=== PATIENT | male | born 1935 | race Caucasian/White ===

== ENCOUNTER 2019-06-28 18:38 | Emergency (ER) | payer MEDICARE ==
[~2019-06-28] VITALS: Ht 180.4 cm; Wt 90.5 kg
--- NOTE | 2019-06-28 19:09 | ED GI ---
General Chief Complaint: Abdominal/GI Problems Stated Complaint: UPPER ABD BURNING/DISCOMFORT Nursing Triage Note: Pt amb to room #5 with c/o epigastric discomfort, bloating, et nausea. Pt reports onset of symptoms to be 06/27/19. Pt reports inability to sleep d/t discomfort. ABD round, soft, et distended. Pt deneis fever, chills, vomiting, or diarrhea. A&ox4. Daughter at side. Sepsis Screen: No Definite Risk Source of Information: Patient Exam Limitations: No Limitations History of Present Illness Date Seen by Provider: Jun 28, 2019 Time Seen by Provider: 19:06 Initial Comments To ER with reports of "gas", states that his abdomen feels tight to bend forward, belching a lot, nausea and bloating. Bowel movements have been normal. No fever no chills no history of this. He denies chest pain or shortness of breath. Timing/Duration: 1-2 Days Severity/Quality: Moderate Radiation: No Radiation Activities at Onset: None Associated Symptoms: Nausea/Vomiting Allergies and Home Medications Allergies Coded Allergies: No Known Drug Allergies (Unverified , 11/03/15) Home Medications No Active Prescriptions or Reported Meds Patient Home Medication List Home Medication List Reviewed: Yes Review of Systems Review of Systems Constitutional: see HPI; No chills, No fever EENTM: No Symptoms Reported Respiratory: No Symptoms Reported Cardiovascular: No Symptoms Reported Gastrointestinal: See HPI, Abdominal Pain Genitourinary: No Symptoms Reported Musculoskeletal: no symptoms reported Skin: no symptoms reported Psychiatric/Neurological: No Symptoms Reported Endocrine: No Symptoms Reported Past Eqjxmen-Xswfsa-Rfgwrs Hx Patient Social History Recent Foreign Travel: No Contact w/Someone Who Travel: No Recent Infectious Disease Expo: No Physical Exam Vital Signs Vital Signs - First Documented 06/28/19 18:47 Temp 36.7 Pulse 96 Resp 18 B/P (MAP) 181/96 (124) Pulse Ox 98 O2 Delivery Room Air Capillary Refill : Less Than 3 Seconds Height/Weight/BMI Height: 5'10.50" Weight: 211lbs. 0.0oz. 95.191947wg; 27.00 BMI Method: General Appearance: WD/WN, no apparent distress, other (Alert and oriented abdomen distended bowel sounds normal may be a bit hyperactive.) Neck: non-tender, full range of motion Respiratory: no respiratory distress, no accessory muscle use Gastrointestinal: normal bowel sounds, non tender, soft Extremities: normal range of motion, non-tender Neurologic/Psychiatric: alert, normal mood/affect, oriented x 3 Skin: normal color, warm/dry Progress/Results/Core Measures Results/Orders Lab Results Laboratory Tests Test 06/28/19 18:56 06/28/19 19:40 Range/Units White Blood Count 8.5 4.3-11.0 10^3/uL Red Blood Count 4.89 4.35-5.85 10^6/uL Hemoglobin 15.0 13.3-17.7 G/DL Hematocrit 45 40-54 % Mean Corpuscular Volume 91 80-99 FL Mean Corpuscular Hemoglobin 31 25-34 PG Mean Corpuscular Hemoglobin Concent 34 32-36 G/DL Red Cell Distribution Width 12.9 10.0-14.5 % Platelet Count 224 130-400 10^3/uL Mean Platelet Volume 9.2 7.4-10.4 FL Neutrophils (%) (Auto) 65 42-75 % Lymphocytes (%) (Auto) 22 12-44 % Monocytes (%) (Auto) 11 0-12 % Eosinophils (%) (Auto) 3 0-10 % Basophils (%) (Auto) 0 0-10 % Neutrophils # (Auto) 5.5 1.8-7.8 X 10^3 Lymphocytes # (Auto) 1.9 1.0-4.0 X 10^3 Monocytes # (Auto) 0.9 0.0-1.0 X 10^3 Eosinophils # (Auto) 0.2 0.0-0.3 10^3/uL Basophils # (Auto) 0.0 0.0-0.1 10^3/uL Sodium Level 140 135-145 MMOL/L Potassium Level 3.8 3.6-5.0 MMOL/L Chloride Level 104 98-107 MMOL/L Carbon Dioxide Level 25 21-32 MMOL/L Anion Gap 11 5-14 MMOL/L Blood Urea Nitrogen 15 7-18 MG/DL Creatinine 0.99 0.60-1.30 MG/DL Estimat Glomerular Filtration Rate > 60 BUN/Creatinine Ratio 15 Glucose Level 113 H 70-105 MG/DL Calcium Level 9.9 8.5-10.1 MG/DL Corrected Calcium 9.6 8.5-10.1 MG/DL Total Bilirubin 0.4 0.1-1.0 MG/DL Aspartate Amino Transf (AST/SGOT) 19 5-34 U/L Alanine Aminotransferase (ALT/SGPT) 17 0-55 U/L Alkaline Phosphatase 78 40-136 U/L Total Protein 7.1 6.4-8.2 GM/DL Albumin 4.4 3.2-4.5 GM/DL Lipase 12 8-78 U/L Urine Color YELLOW Urine Clarity CLEAR Urine pH 7.0 5-9 Urine Specific [place] 1.010 L 1.016-1.022 Urine Protein NEGATIVE NEGATIVE Urine Glucose (UA) NEGATIVE NEGATIVE Urine Ketones NEGATIVE NEGATIVE Urine Nitrite NEGATIVE NEGATIVE Urine Bilirubin NEGATIVE NEGATIVE Urine Urobilinogen 0.2 < = 1.0 MG/DL Urine Leukocyte Esterase NEGATIVE NEGATIVE Urine RBC (Auto) 1+ H NEGATIVE Urine RBC NONE /HPF Urine WBC NONE /HPF Urine Crystals NONE /LPF Urine Bacteria NEGATIVE /HPF Urine Casts NONE /LPF Urine Mucus NEGATIVE /LPF Urine Culture Indicated NO My Orders Orders - RICHARDSON THOMAS APRN Lipase (06/28/19 19:02) Ua Culture If Indicated (06/28/19 19:02) Cbc With Automated Diff (06/28/19 19:02) Comprehensive Metabolic Panel (06/28/19 19:02) Ct Abdomen/Pelvis W (06/28/19 19:02) Iohexol Injection (Omnipaque 350 Mg/Ml 1 (06/28/19 19:30) Received Contrast (Hold Metformin- Contr (06/28/19 19:30) Ns (Ivpb) (Sodium Chloride 0.9% Ivpb Bag (06/28/19 19:30) Medications Given in ED Current Medications Medications Dose Ordered Sig/Milli Route Start Time Stop Time Status Last Admin Dose Admin Iohexol 100 ml ONCE ONCE IV 06/28/19 19:30 06/28/19 19:31 DC 06/28/19 19:28 100 ML Sodium Chloride 100 ml ONCE ONCE IV 06/28/19 19:30 06/28/19 19:31 DC 06/28/19 19:28 80 ML Vital Signs/I&O 06/28/19 18:47 Temp 36.7 Pulse 96 Resp 18 B/P (MAP) 181/96 (124) Pulse Ox 98 O2 Delivery Room Air Blood Pressure Mean: 124 Departure Communication (Admissions) NAME: ERIKA DECKER REC#: [id number] PT STATUS: REG ER : 1935 PHYSICIAN: RICHARDSON THOMAS APRN ADMIT DATE: 06/28/19/ER Draft Date of Exam:06/28/19 CT ABDOMEN/PELVIS W PROCEDURE: CT abdomen and pelvis with contrast. TECHNIQUE: Multiple contiguous axial images were obtained through the abdomen and pelvis after administration of intravenous contrast. Auto Exposure Controls were utilized during the CT exam to meet ALARA standards for radiation dose reduction. INDICATION: Abdominal pain. Bloating. Comparison is made to the prior CT study from 02/19/2013. FINDINGS: Lung bases appear clear without focal infiltrate or evidence of an effusion. The liver demonstrates multiple low density lesions throughout the liver compatible with cysts. These are not significantly changed from the prior examination. The gallbladder is nondistended. There are no radiodense gallstones. The main portal vein is patent. The spleen is normal in size. Pancreas is atrophic without focal abnormality. There is no adrenal mass. The kidneys are nonobstructed. There is a small left renal cyst. Stomach is nondistended. There are no findings of bowel dilation to suggest bowel obstruction. Note is made of advanced sigmoid diverticulosis but no findings of diverticulitis. There is moderate stool throughout the colon. There are no findings to suggest appendicitis. There is no free air, free fluid or abscess. The prostate is enlarged. Urinary bladder unremarkable. There are no pathologically enlarged abdominal or pelvic lymph nodes. The aorta is normal in caliber. There are atherosclerotic calcifications within the aorta. There is multilevel degenerative disc disease and facet arthropathy but no evidence of an acute or suspicious osseous abnormality. 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 IMPRESSION: 1. No CT evidence of an acute inflammatory or obstructive process within the abdomen or pelvis 2. No findings of bowel obstruction. Uncomplicated diverticulosis noted 3. Unchanged hepatic cysts 4. No free air, free fluid, abscess, adenopathy or focal inflammation within the omentum or mesentery. Dictated on workstation # [id number] Dict: 06/28/191946 Trans: 06/28/192036 [facility] [id number] Interpreted by: ISSAC SOTO MD Electronically signed by: Impression Primary Impression: Abdominal bloating Additional Impression: Gas pain Disposition: HOME, SELF-CARE Condition: Stable Departure-Patient Inst. Decision time for Depature: 20:12 Referrals: PAN GOYAL MD (PCP/Family) Primary Care Physician Patient Instructions: No Instuctions Given Add. Discharge Instructions: 1. Use the gas medication as needed. Return to ER for any concerns. Follow-up with Dr. Goyal on Sunday. All discharge instructions reviewed with patient and/or family. Voiced understanding. Scripts Simethicone (Simethicone) 125 Mg Tab.chew 125 MG PO TID, #10 TAB Prov: RICHARDSON THOMAS APRN 06/28/19 Copy Copies To 1: PAN GOYAL MD, PETER J APRN Jun 28, 2019 19:09
[2019-06-28 19:18] LABS: BASOPHILS % (AUTO) 0 % (0-10); EOSINOPHILS # (AUTO) 0.2 10^3/uL (0.0-0.3); EOSINOPHILS % (AUTO) 3 % (0-10); HEMATOCRIT 45 % (40-54); LYMPHOCYTES # (AUTO) 1.9 X 10^3 (1.0-4.0); LYMPHOCYTES % (AUTO) 22 % (12-44); MEAN CORPUSCULAR HEMOGLOBIN 31 PG (25-34); MEAN CORPUSCULAR HGB CONC 34 G/DL (32-36); MEAN CORPUSCULAR VOLUME 91 FL (80-99); MEAN PLATELET VOLUME 9.2 FL (7.4-10.4); MONOCYTES # (AUTO) 0.9 X 10^3 (0.0-1.0); MONOCYTES % (AUTO) 11 % (0-12); NEUTROPHILS # (AUTO) 5.5 X 10^3 (1.8-7.8); NEUTROPHILS % (AUTO) 65 % (42-75); PLATELET COUNT 224 10^3/uL (130-400); RED CELL DISTRIBUTION WIDTH 12.9 % (10.0-14.5); WHITE BLOOD COUNT 8.5 10^3/uL (4.3-11.0)
[2019-06-28 19:24] LABS: ALANINE AMINOTRANSFERASE 17 U/L (0-55); ALBUMIN 4.4 GM/DL (3.2-4.5); ALKALINE PHOSPHATASE 78 U/L (40-136); BILIRUBIN,TOTAL 0.4 MG/DL (0.1-1.0); BUN/CREATININE RATIO 15; CALCIUM 9.9 MG/DL (8.5-10.1); CARBON DIOXIDE 25 MMOL/L (21-32); CHLORIDE 104 MMOL/L (98-107); CREATININE SERUM 0.99 MG/DL (0.60-1.30); GFR ESTIMATED > 60; GLUCOSE 113 MG/DL (70-105); LIPASE 12 U/L (8-78); POTASSIUM 3.8 MMOL/L (3.6-5.0); SODIUM 140 MMOL/L (135-145); TOTAL PROTEIN 7.1 GM/DL (6.4-8.2)
[2019-06-28] MEDS ORDERED: NS 100 ML (IVPB) BAG IV ONE (19:30)
[2019-06-28] MEDS ORDERED: HOLD METFORMIN - RECEIVED CONTRAST 20 ML VIAL IV SCH (19:30)
[2019-06-28] MEDS ORDERED: IOHEXOL 350 MG/ML 100 ML (OMNIPAQUE 350) VIAL IV ONE (19:30)
[2019-06-28 19:49] LABS: BILIRUBIN,URINE NEGATIVE (NEGATIVE); CLARITY,URINE CLEAR; COLOR,URINE YELLOW; GLUCOSE, URINE (UA) NEGATIVE (NEGATIVE); KETONES,URINE NEGATIVE (NEGATIVE); LEUKOCYTE ESTERASE ,URINE NEGATIVE (NEGATIVE); NITRITE,URINE NEGATIVE (NEGATIVE); PROTEIN,URINE NEGATIVE (NEGATIVE)
[2019-06-28 19:56] LABS: BACTERIA,URINE NEGATIVE /HPF
--- NOTE | 2019-06-28 20:05 | NUR ---
Pt brother took personal belongings (keys) et left ED facility.
--- NOTE | 2019-06-28 20:38 | Diagnostic Imaging Report ---
PROCEDURE: CT abdomen and pelvis with contrast. TECHNIQUE: Multiple contiguous axial images were obtained through the abdomen and pelvis after administration of intravenous contrast. Auto Exposure Controls were utilized during the CT exam to meet ALARA standards for radiation dose reduction. INDICATION: Abdominal pain. Bloating. Comparison is made to the prior CT study from 02/19/2013. FINDINGS: Lung bases appear clear without focal infiltrate or evidence of an effusion. The liver demonstrates multiple low density lesions throughout the liver compatible with cysts. These are not significantly changed from the prior examination. The gallbladder is nondistended. There are no radiodense gallstones. The main portal vein is patent. The spleen is normal in size. Pancreas is atrophic without focal abnormality. There is no adrenal mass. The kidneys are nonobstructed. There is a small left renal cyst. Stomach is nondistended. There are no findings of bowel dilation to suggest bowel obstruction. Note is made of advanced sigmoid diverticulosis but no findings of diverticulitis. There is moderate stool throughout the colon. There are no findings to suggest appendicitis. There is no free air, free fluid or abscess. The prostate is enlarged. Urinary bladder unremarkable. There are no pathologically enlarged abdominal or pelvic lymph nodes. The aorta is normal in caliber. There are atherosclerotic calcifications within the aorta. There is multilevel degenerative disc disease and facet arthropathy but no evidence of an acute or suspicious osseous abnormality. 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 IMPRESSION: 1. No CT evidence of an acute inflammatory or obstructive process within the abdomen or pelvis 2. No findings of bowel obstruction. Uncomplicated diverticulosis noted 3. Unchanged hepatic cysts 4. No free air, free fluid, abscess, adenopathy or focal inflammation within the omentum or mesentery. Dictated by: Dictated on workstation # [id number]
[2019-06-28] MEDS ORDERED: SIME125T50 PO (20:45)
[2019-06-28] MEDS ORDERED: ALPRAZolam 0.25 MG (XANAX) TAB PO ONE (21:00)
[2019-06-28 21:02] VITALS: BP 142/83
== END 2019-06-28 21:03 | disposition home or self-care (01) ==
LOC: EDUNIT# 18:38 → ER 18:40
DX: R14.0 Abdominal distension (gaseous) (principal); R14.1 Gas pain
CPT/HCPCS: 36415; 74177; 80053; 81000; 83690; 85025; 93005

== ENCOUNTER → 2021-12-26 | Outpatient (CLI) | payer MEDICARE ==
[~2021-12-26] MED LIST: SIME125T50 PO
--- NOTE | 2021-12-26 13:58 | Diagnostic Imaging Report ---
PROCEDURE: MRI lumbar spine. TECHNIQUE: Multiplanar, multisequence MRI of the lumbar spine was performed without contrast. INDICATION: Chronic back pain. FINDINGS: There is straightening of the normal lumbar lordosis. The vertebral body heights are well maintained. No spondylolysis or spondylolisthesis. No fractures are identified. Conus medullaris seen at L1 is normal in appearance. At T12-L1, there is no spinal or neural foraminal encroachment. At L1-L2, there is some annular bulging facet disease and thickening of ligamentum flavum. There is moderate spinal stenosis with moderate bilateral neural foraminal encroachment. At L2-L3, there is annular bulging facet disease and thickening of ligamentum flavum. There is mild spinal stenosis with encroachment of lateral recess bilaterally and moderate bilateral neural foraminal encroachment. At L3-L4, there is annular bulging facet disease and thickening of ligamentum flavum. There is severe central spinal stenosis with encroachment on the lateral recess bilaterally. Moderate bilateral neural foraminal encroachment. At L4-L5, there is annular bulging facet disease and thickening of ligamentum flavum. There is moderately severe spinal stenosis with encroachment on the lateral recess bilaterally left greater than right. There is moderate bilateral foraminal encroachment. At L5-S1, there is annular bulging and facet disease. There is moderate spinal stenosis with encroachment of lateral recess bilaterally and mild to moderate bilateral neural foraminal encroachment. The aorta is nonaneurysmal. There are small bilateral renal cysts. 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 Small bilateral renal cysts. Dictated by: Dictated on workstation # [id number]
== END ==
LOC: RAD 10:28
PROVIDERS: ATTEND Internal Medicine
DX: M47.26 Other spondylosis with radiculopathy, lumbar region (principal); N28.1 Cyst of kidney, acquired
CPT/HCPCS: 72148

== ENCOUNTER 2022-04-03 12:53 | Emergency (ER) | payer MEDICARE ==
[~2022-04-03] VITALS: Ht 177 cm; Wt 83.9 kg
--- NOTE | 2022-04-03 13:25 | ED Back Pain ---
General Chief Complaint: Back Problems Stated Complaint: BACK PAIN | MUSCLE SPASMS Source of Information: Patient, Family Exam Limitations: No Limitations History of Present Illness Date Seen by Provider: Apr 03, 2022 Time Seen by Provider: 13:10 Initial Comments 86-year-old male presents to the emergency department today for low back pain. He has midline low back pain since August. For the last couple of months he has been having "spasms" in his bilateral lumbar lateral regions. About a week ago he had a spinal procedure with Dr. Joiner at [facility] in [place]. His daughter states they "went in and clean some things up." They are unclear exactly what he had done. During the whole course of this since August he has had some bilateral lower extremity edema. He was previously on a water pill, spironolactone/hydrochlorothiazide. He quit taking this because due to his pain he has been unable to get up and go to the restroom. His leg swelling has gotten worse per his report. He is having normal urination, normal bowel movements. He has been taking pain medication, hydrocodone as well as gabapentin. He feels like his midline tenderness that he has been having was relieved with his surgery however he continues to have intermittent bilateral lumbar spasm type pains that last for few seconds and are severe. These are not much worse if he moves with any twisting movement or flexion at the waist. They do sometimes happen spontaneously. The daughter states that he will have "knots in the area." She states she is able to feel these when they happen. Allergies and Home Medications Allergies Coded Allergies: No Known Drug Allergies (Unverified , 11/03/15) Patient Home Medication List Home Medication List Reviewed: Yes Simethicone (Simethicone) 125 Mg Tab.chew, 125 MG PO TID Prescribed by: RICHARDSON THOMAS on 06/28/192044 Review of Systems Constitutional: no symptoms reported EENTM: no symptoms reported Respiratory: no symptoms reported Cardiovascular: no symptoms reported Gastrointestinal: no symptoms reported Genitourinary: no symptoms reported Musculoskeletal: back pain Skin: no symptoms reported Psychiatric/Neurological: No Symptoms Reported Past Qqmgtmx-Fmtjwm-Xfewdp Hx Patient Social History Tobacco Use?: No Substance use?: No Alcohol Use?: No Pt feels they are or have been: No Past Medical History Surgery/Hospitalization HX: PMH;CHOLESTEROL. SUGERY;BACK SURGERY TO "CLEAN OUT SPINE" Surgeries: Yes (CYST ON FOREHEAD) Respiratory: No Cardiac: No Neurological: No Gastrointestinal: No Musculoskeletal: No Endocrine: No Integumentary: No Family Medical History Reviewed Nursing Family Hx No Pertinent Family Hx Physical Exam Vital Signs Vital Signs - First Documented 04/03/22 12:58 Temp 36.6 Pulse 128 Resp 20 B/P (MAP) 164/84 (110) Pulse Ox 98 O2 Delivery Room Air Capillary Refill : Height, Weight, BMI Height: 5'10.50" Weight: 211lbs. 0.0oz. 95.498671eb; 27.00 BMI Method: General Appearance: No Apparent Distress, WD/WN HEENT: Normal ENT Inspection, Pharynx Normal Neck: Full Range of Motion, Normal Inspection, Non Tender, Supple Cardiovascular: Regular Rate, Rhythm, Normal Peripheral Pulses Respiratory: Chest Non Tender, Normal Breath Sounds, No Accessory Muscle Use, No Respiratory Distress Back: Normal Inspection, Other (Midline lumbar incision approximately 2 cm, healing well without evidence for infection. No midline tenderness to palpation. 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 Skin: Normal Color, Warm/Dry Progress/Results/Core Measures Results/Orders Lab Results Laboratory Tests Test 04/03/22 13:23 Range/Units White Blood Count 10.0 4.3-11.0 10^3/uL Red Blood Count 4.55 4.30-5.52 10^6/uL Hemoglobin 12.6 L 13.3-17.7 g/dL Hematocrit 40 40-54 % Mean Corpuscular Volume 87 80-99 fL Mean Corpuscular Hemoglobin 28 25-34 pg Mean Corpuscular Hemoglobin Concent 32 32-36 g/dL Red Cell Distribution Width 14.2 10.0-14.5 % Platelet Count 329 130-400 10^3/uL Mean Platelet Volume 8.3 L 9.0-12.2 fL Immature Granulocyte % (Auto) 1 % Neutrophils (%) (Auto) 71 42-75 % Lymphocytes (%) (Auto) 19 12-44 % Monocytes (%) (Auto) 8 0-12 % Eosinophils (%) (Auto) 1 0-10 % Basophils (%) (Auto) 0 0-10 % Neutrophils # (Auto) 7.1 1.8-7.8 10^3/uL Lymphocytes # (Auto) 1.9 1.0-4.0 10^3/uL Monocytes # (Auto) 0.8 0.0-1.0 10^3/uL Eosinophils # (Auto) 0.1 0.0-0.3 10^3/uL Basophils # (Auto) 0.0 0.0-0.1 10^3/uL Immature Granulocyte # (Auto) 0.1 0.0-0.1 10^3/uL Sodium Level 136 135-145 MMOL/L Potassium Level 3.8 3.6-5.0 MMOL/L Chloride Level 98 98-107 MMOL/L Carbon Dioxide Level 27 21-32 MMOL/L Anion Gap 11 5-14 MMOL/L Blood Urea Nitrogen 20 H 7-18 MG/DL Creatinine 1.00 0.60-1.30 MG/DL Estimat Glomerular Filtration Rate 74 BUN/Creatinine Ratio 20 Glucose Level 139 H 70-105 MG/DL Calcium Level 10.2 H 8.5-10.1 MG/DL Corrected Calcium 9.8 8.5-10.1 MG/DL Total Bilirubin 0.6 0.1-1.0 MG/DL Aspartate Amino Transf (AST/SGOT) 18 5-34 U/L Alanine Aminotransferase (ALT/SGPT) 20 0-55 U/L Alkaline Phosphatase 101 40-136 U/L Total Protein 8.2 6.4-8.2 GM/DL Albumin 4.5 3.2-4.5 GM/DL My Orders Orders - TOM HARRISON DO Comprehensive Metabolic Panel (04/03/22 13:20) Cbc With Automated Diff (04/03/22 13:20) Fentanyl Inj (Sublimaze Injection) (04/03/22 13:30) Medications Given in ED Current Medications Medications Dose Ordered Sig/Milli Route Start Time Stop Time Status Last Admin Dose Admin Fentanyl Citrate 50 mcg ONCE ONCE IVP 04/03/22 13:30 04/03/22 13:42 DC 04/03/22 13:29 50 MCG Vital Signs/I&O 04/03/22 12:58 Temp 36.6 Pulse 128 Resp 20 B/P (MAP) 164/84 (110) Pulse Ox 98 O2 Delivery Room Air Departure Communication (Admissions) Patient is hemodynamically stable with no red flag symptoms. He has very intermittent pain, only with movement and has clear muscle spasms in the area when affected. He does have significant amount of pain with this. He was told after his surgery that he had been given the "maximum amount of pain medication" and was ultimately discharged with similar pains. Sounds like this pain has been going on for several months at this time with multiple different attempts at control without much relief. We will go ahead and try muscle relaxers at his daughter's request. He has no red flag symptoms such as saddle anesthesia, loss of bowel or bladder control. No focal neurologic deficits. Simply discharged home in stable condition with supportive care. Impression Primary Impression: Back strain Qualified Codes: S39.012A - Strain of muscle, fascia and tendon of lower back, initial encounter Additional Impression: Bilateral lower extremity edema Disposition: HOME, SELF-CARE Condition: Stable Departure-Patient Inst. Referrals: PAN MCCALLUM MD (PCP/Family) Primary Care Physician Patient Instructions: Muscle Strain Add. Discharge Instructions: Take the muscle relaxer as prescribed as needed for muscle spasms in your back. This will make you drowsy so please use your walker if you try to walk around frequently. Regarding your leg swelling, you likely need to get your back pain under control so he can walk more, elevate legs when not in use and restart your water pills. You should focus on your back pain first and then your leg swelling will likely get better once these other changes can be made. Follow-up with your primary doctor for any nonemergent needs. Return to the emergency department for any severe concerns All discharge instructions reviewed with patient and/or family. Voiced understanding. Scripts Cyclobenzaprine HCl (Cyclobenzaprine HCl) 10 Mg Tablet 10 MG PO TID for Muscle Spasms for 5 Days, #15 TAB Prov: TOM HARRISON DO 04/03/22 TOM HARRISON DO Apr 03, 2022 13:25
[2022-04-03 13:30] LABS: BASOPHILS % (AUTO) 0 % (0-10); EOSINOPHILS # (AUTO) 0.1 10^3/uL (0.0-0.3); EOSINOPHILS % (AUTO) 1 % (0-10); HEMATOCRIT 40 % (40-54); HEMOGLOBIN 12.6 g/dL (13.3-17.7); LYMPHOCYTES # (AUTO) 1.9 10^3/uL (1.0-4.0); LYMPHOCYTES % (AUTO) 19 % (12-44); MEAN CORPUSCULAR HEMOGLOBIN 28 pg (25-34); MEAN CORPUSCULAR HGB CONC 32 g/dL (32-36); MEAN CORPUSCULAR VOLUME 87 fL (80-99); MEAN PLATELET VOLUME 8.3 fL (9.0-12.2); MONOCYTES # (AUTO) 0.8 10^3/uL (0.0-1.0); MONOCYTES % (AUTO) 8 % (0-12); NEUTROPHILS # (AUTO) 7.1 10^3/uL (1.8-7.8); NEUTROPHILS % (AUTO) 71 % (42-75); PLATELET COUNT 329 10^3/uL (130-400)
[2022-04-03] MEDS ORDERED: fentaNYL INJ 100 MCG/2 ML AMP IVP ONE (13:30)
[2022-04-03 13:44] LABS: ALBUMIN 4.5 GM/DL (3.2-4.5)
[2022-04-03 13:45] LABS: POTASSIUM 3.8 MMOL/L (3.6-5.0)
[2022-04-03 13:46] LABS: CALCIUM 10.2 MG/DL (8.5-10.1)
[2022-04-03 13:47] LABS: TOTAL PROTEIN 8.2 GM/DL (6.4-8.2)
[2022-04-03 13:49] LABS: BILIRUBIN,TOTAL 0.6 MG/DL (0.1-1.0)
[2022-04-03] MEDS ORDERED: CYCL10TA25 PO (14:21)
[2022-04-03 14:41] VITALS: BP 160/89
== END 2022-04-03 14:35 | disposition home or self-care (01) ==
LOC: EDUNIT# 12:53 → ER 12:55
DX: S39.012A Strain of muscle, fascia and tendon of lower back, initial encounter (principal); R60.0 Localized edema; Z98.890 Other specified postprocedural states; X50.1XXA Overexertion from prolonged static or awkward postures, initial encounter
CPT/HCPCS: 36415; 80053; 85025; 99281

== ENCOUNTER → 2022-04-05 | Outpatient (CLI) | payer MEDICARE ==
[~2022-04-05] MED LIST changes: +CYCL10TA25 PO
--- NOTE | 2022-04-05 14:50 | Diagnostic Imaging Report ---
PROCEDURE: CT lumbar spine without contrast. TECHNIQUE: Multiple contiguous axial images were obtained through the lumbar spine without the use of intravenous contrast. Sagittal and coronal reformations were then performed. Auto Exposure Controls were utilized during the CT exam to meet ALARA standards for radiation dose reduction. INDICATION: Back pain. COMPARISON: Lumbar spine MRI from 12/27/2019. FINDINGS: Since prior examination, there has been significant endplate destruction on both sides of the T11-T12 disc space. 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 Additionally, there are stranding in the paravertebral fat surrounding this level further supporting discitis-osteomyelitis. No additional levels of potential discitis hypervascular myelitis within the lumbar spine. No compression fractures present. No sacral insufficiency fractures. Severe osseous demineralization is present. Degenerative changes cause spinal canal stenosis similar to prior MRI and are most advanced at L3-L4 where there is severe spinal canal stenosis. IMPRESSION: 1. Endplate destruction has now developed on both sides of T11-T12 with surrounding inflammatory stranding in the paravertebral fat. 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 Consider neurosurgical consultation. If additional imaging is warranted, MRI of the lumbar spine without and with IV contrast could help to assess if there is epidural extension of infection. 2. Case was called to Dr. Goyal by Dr. Sims at 2:24 PM on 04/05/2022. Dictated by: Dictated on workstation # [id number]
== END ==
LOC: RAD 13:15
PROVIDERS: ATTEND Internal Medicine
DX: M54.50 Low back pain, unspecified (principal)
CPT/HCPCS: 72131

== ENCOUNTER → 2022-06-27 | Outpatient (CLI) | payer MEDICARE ==
[~2022-06-27] MED LIST changes: +GADOTERATE 0.5 MMOL/ML (CLARISCAN) 15 ML VIAL IV ONE
--- NOTE | 2022-06-27 11:46 | Diagnostic Imaging Report ---
PROCEDURE: MRI lumbar spine with and without contrast. TECHNIQUE: Multiplanar, multisequence MRI of the lumbar spine was performed with and without contrast. INDICATION: Back pain. Spinal stenosis. Reported surgery in March 2022, not specified. COMPARISON: MRI lumbar spine without contrast 12/26/2021. CT lumbar spine with and without contrast 04/05/2022. FINDINGS: There 5 lumbar-type vertebral bodies for the purposes of this report. Normal alignment of the lumbar spine. Lumbar vertebral body heights are preserved. Interval progression of destructive endplate changes, edema and enhancement at T11-T12 with peripherally enhancing fluid in the disc space. There is now 90% height loss of the anterior T11 vertebral body, proximal 70% of the anterior T12 vertebral body. There is also some developing grade 1 retrolisthesis of T11 on T12. Adjacent edema and enhancement in the paravertebral soft tissues with a developing peripherally enhancing fluid collection consistent with an abscess along the right aspect of the disc space. The retrolisthesis results in moderate spinal canal stenosis at the T11-T12 level. Moderate to severe bilateral neural foraminal narrowing at T11-T12. No abnormal signal or enhancement in the conus which terminates at L1-L2. Normal morphology of the cauda equina without abnormal enhancement. Stable enhancing T2 hyperintensity in the L1 vertebral body measuring up 1.7 cm. Stable enhancing T2 hyperintense lesion in the left sacrum at the level of L1 measuring up to 2.0 cm. There is no appreciable fat signal within either one of these lesions. T12-L1: Moderate facet arthropathy. Mild spinal canal bilateral lateral recess narrowing. Moderate left and mild right neural foraminal narrowing. L1-L2: Broad-based disc bulging, ligamentous hypertrophy and facet arthropathy result in moderate to severe spinal canal stenosis. Moderate to severe bilateral neural foraminal narrowing. L2-L3: Moderate facet arthropathy. Mild spinal canal bilateral lateral recess narrowing. Moderate bilateral neural foraminal narrowing. L3-L4: Broad-based disc bulging, ligamentous hypertrophy and facet arthropathy result in severe spinal canal stenosis. Severe right and moderate left neural foraminal narrowing. L4-L5: Broad-based disc bulging, facet arthropathy and ligamentous hypertrophy result in moderate spinal canal stenosis. Severe bilateral lateral recess narrowing. Severe bilateral neural foraminal narrowing. L5-S1: Facet arthropathy results in severe bilateral lateral recess narrowing. Mild spinal canal narrowing. Moderate to severe bilateral neural foraminal narrowing. Postoperative changes are evident on this exam. Recommend correlation with clinical history and surgical report. Visualized pelvis demonstrates no acute findings IMPRESSION: 1. 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 There is also a peripherally enhancing fluid collection along the right aspect of the disc space compatible with abscess formation. There is increasing anterolisthesis of T11 on T12 which contributes to moderate spinal canal stenosis. High-grade bilateral neural foraminal narrowing at this level. 2. Enhancing T2 hyperintense lesions in the L5 and S1 segments are stable in size compared to 12/26/2021 and may represent benign fat poor hemangiomas. Recommend correlation with clinical history including metastatic malignancy. This could be further investigated with bone scan if clinically warranted. 3. Spondylotic changes result in high-grade spinal canal stenosis at L1-L2, L3-L4 and L4-L5. Multilevel high-grade lateral recess and neural foraminal narrowing also detailed above level by level. Dictated by: Dictated on workstation # [id number]
== END ==
LOC: RAD 08:59
PROVIDERS: ATTEND Internal Medicine
DX: M46.24 Osteomyelitis of vertebra, thoracic region (principal); M43.14 Spondylolisthesis, thoracic region; M47.816 Spondylosis without myelopathy or radiculopathy, lumbar region; M48.04 Spinal stenosis, thoracic region; M48.062 Spinal stenosis, lumbar region with neurogenic claudication; M48.07 Spinal stenosis, lumbosacral region
CPT/HCPCS: 72158